=== PATIENT | female | born 1940 | race Caucasian/White ===

== ENCOUNTER 2018-02-24 12:50 | Day surgery (SDC) | payer MEDICARE ==
[~2018-02-24 12:50] MED LIST: DIPHENHYDRAMINE HCL 50 MG/ML VIAL ONE; EPINEPHRINE INJ 1 MG/10 ML DISP.SYRIN ONE; FENTANYL CITRATE INJ/PF 100 MCG/2 ML AMPUL ONE; FLUMAZENIL INJ 0.5 MG/5 ML VIAL ONE; GLUCAGON,HUMAN RECOMB 1 MG INJ ONE; MIDAZOLAM 2 MG/2 ML INJ ONE; NALOXONE HCL INJ/PF 0.4 MG/1 ML SDV ONE
[2018-02-24] MEDS: MIDAZOLAM 2 MG/2 ML INJ ONE ×2 (13:44→13:48)
--- NOTE | 2018-02-24 13:54 | Operative Report ---
Operative Report DATE OF SURGERY: 02/24/18 Operative Report: The risks benefits and alternatives of the procedure explained to the patient in detail and informed consent is obtained.A GIF Olympus video scope was inserted into the patient's mouth and hypopharynx, the esophagus is identified intubated and insufflated, the scope was then advanced through the esophagus stomach and duodenum, retroflexion maneuver is done, the esophagus stomach and first and second portions of the duodenum examined PREOPERATIVE DIAGNOSIS: Right upper quadrant/epigastric pain POSTOPERATIVE DIAGNOSIS: Gastritis status post biopsy rule out Helicobacter pylori OPERATION: EGD with biopsy SURGEON: MONI AREVALO ANESTHESIA: Moderate Sedation - 3 mg of Versed, 25 mcg of fentanyl. Conscious sedation monitoring time 30 minutes. TISSUE REMOVED OR ALTERED: As noted above. COMPLICATIONS: None. ESTIMATED BLOOD LOSS: None. INTRAOPERATIVE FINDINGS: As noted above. PROCEDURE: Patient tolerated procedure well. No immediate postprocedure complications are noted. Patient discharged in good condition. Discharge date 02/24/2018. Discharge diet: Regular. Discharge activity: Regular. 2-3 week follow-up to discuss findings. Patient is instructed call the office or proceed to the emergency room should there be any further problems or questions. We will wait on the pathology.
[2018-02-24 16:15] VITALS: BP 136/57
== END 2018-02-24 15:15 | disposition home or self-care (01) ==
LOC: END 12:50
PROVIDERS: ATTEND Internal Medicine Gastroenterology
DX: K29.50 Unspecified chronic gastritis without bleeding (principal); E78.5 Hyperlipidemia, unspecified; E03.9 Hypothyroidism, unspecified; I12.9 Hypertensive chronic kidney disease with stage 1 through stage 4 chronic kidney disease, or unspecified chronic kidney disease; E11.22 Type 2 diabetes mellitus with diabetic chronic kidney disease; N18.3 Chronic kidney disease, stage 3 (moderate)
CPT/HCPCS: 43239; 88342 ×2; 88305 ×2; J2250; J3010; J0171; J1200; J1610; J2310; J3490

== ENCOUNTER → 2018-03-20 | Outpatient (CLI) | payer MEDICARE ==
--- NOTE | 2018-03-20 11:29 | RADIOLOGY REPORT (SQ) ---
EXAM DESCRIPTION: U/S ABDOMEN COMPLETE W/DOPPLER COMPLETED DATE/TIME: 03/20/2018 8:49 am REASON FOR STUDY: RIGHT UPPER QUADRANT PAIN R10.11 RIGHT UPPER QUADRANT PAIN COMPARISON: None. TECHNIQUE: Dynamic and static grayscale images acquired of the abdomen and recorded on PACS. Additio nal selected color Doppler and spectral images recorded. LIMITATIONS: None. FINDINGS: PANCREAS: No masses. Visualized pancreatic duct normal caliber. LIVER: Echotexture is coarse with increased echogenicity consistent with fatty infiltration. LIVER VASCULATURE: Normal directional flow of the main portal vein and hepatic veins. GALLBLADDER: No stones. Normal wall thickness. No pericholecystic fluid. ULTRASOUND-DETECTED GALLO'S SIGN: Negative. INTRAHEPATIC DUCTS AND COMMON DUCT: CBD and intrahepatic ducts normal caliber. No filling defects. INFERIOR VENA CAVA: Normal flow. AORTA: No aneurysm. RIGHT KIDNEY: Normal size. Normal echogenicity. 1.0 cm cortical cyst in the lower pole. No solid o r suspicious masses. No hydronephrosis. No calcifications. LEFT KIDNEY: Normal size. Normal echogenicity. No solid or suspicious masses. No hydronephrosis. No calcifications. SPLEEN:Normal size. No solid masses. PERITONEAL AND PLEURAL SPACES: No ascites or effusions. OTHER: No other significant finding. IMPRESSION: FATTY LIVER. SMALL CORTICAL CYST IN THE LOWER POLE OF THE RIGHT KIDNEY. NO OTHER SIGNI FICANT FINDING. TECHNICAL DOCUMENTATION: JOB ID: [id number] [employer]- All Rights Reserved Reading location - IP/workstation name: [facility]
== END ==
LOC: RAD 08:09
PROVIDERS: ATTEND Internal Medicine Gastroenterology
DX: R10.11 Right upper quadrant pain (principal)
CPT/HCPCS: 76700; 93976

== ENCOUNTER → 2018-03-24 | Outpatient (CLI) | payer MEDICARE ==
--- NOTE | 2018-03-24 16:17 | RADIOLOGY REPORT (SQ) ---
EXAM DESCRIPTION: NM HIDA SCAN WITH CCK COMPLETED DATE/TIME: 03/24/2018 3:38 pm REASON FOR STUDY: RUQ PAIN (R10.11) R10.11 RIGHT UPPER QUADRANT PAIN COMPARISON: Abdominal ultrasound 03/20/2018 RADIONUCLIDE AND DOSE: DOSAGE RADIONUCLIDE: 5.4 millicuries Tc99m Mebrofenin. DOSAGE CCK: 1.7 micrograms. DOSAGE MORPHINE: Not required. The route of agent administration: Intravenous TECHNIQUE: Serial imaging right upper quadrant up to 60 minutes following injection of radionuclide. CCK injected after gallbladder visualized. LIMITATIONS: None. FINDINGS: LIVER: Prompt homogeneous uptake throughout the liver which clears by 60 minutes. INTRAHEPATIC BILE DUCTS: Normal visualization. COMMON BILE DUCT: Normal visualization. GALLBLADDER: Normal visualization. Calculated ejection fraction of 3%. Normal range is greater pravin n 35%. PHYSICAL RESPONSE: Patients presenting complaint was not reproduced. OTHER: No other significant finding. IMPRESSION: No scintigraphic evidence of cystic duct or common duct obstruction. Gallbladder ejection fraction 3%. IV CCK did not reproduce the patient's symptoms TECHNICAL DOCUMENTATION: JOB ID: [id number] [employer]- All Rights Reserved Reading location - IP/workstation name: [email or web address]
== END ==
LOC: RAD 12:44
PROVIDERS: ATTEND Internal Medicine Gastroenterology
DX: R10.11 Right upper quadrant pain (principal)
CPT/HCPCS: 78227; J2805; A9537

== ENCOUNTER → 2020-09-07 | Outpatient (CLI) | payer MEDICARE ==
--- NOTE | 2020-09-07 15:08 | RADIOLOGY REPORT (SQ) ---
EXAM DESCRIPTION: CHEST 2 VIEWS IMAGES COMPLETED DATE/TIME: 09/07/2020 2:37 pm REASON FOR STUDY: PRE OP COMPARISON: None. EXAM PARAMETERS: NUMBER OF VIEWS: two views TECHNIQUE: Digital Frontal and Lateral radiographic views of the chest acquired. RADIATION DOSE: NA LIMITATIONS: none FINDINGS: LUNGS AND PLEURA: No opacities, masses or pneumothorax. No pleural effusion. MEDIASTINUM AND HILAR STRUCTURES: No masses or contour abnormalities. HEART AND VASCULAR STRUCTURES: Heart normal size. No evidence for failure. BONES: No acute findings. HARDWARE: None in the chest. OTHER: No other significant finding. IMPRESSION: NO ACUTE RADIOGRAPHIC FINDING IN THE CHEST. TECHNICAL DOCUMENTATION: JOB ID: [id number] 2010 [employer]- All Rights Reserved Reading location - IP/workstation name: [email or web address]
[2020-09-07 16:14] LABS: ABSOLUTE BASOPHILS # (AUTO) 0.1 10^3/uL (0.0-0.2); ABSOLUTE EOSINOPHILS # (AUTO) 0.5 10^3/uL (0.0-0.6); ABSOLUTE LYMPHOCYTES (AUTO) 2.8 10^3/uL (0.5-4.7); ABSOLUTE MONOCYTES (AUTO) 0.9 10^3/uL (0.1-1.4); ABSOLUTE NEUT (AUTO) 4.4 10^3/uL (1.7-8.2); BASOPHILS % (AUTO) 1.6 % (0-2); EOSINOPHILS % (AUTO) 5.4 % (0-6); HEMATOCRIT 38.7 % (36.0-47.0); HEMOGLOBIN 13.1 g/dL (12.0-15.5); LYMPHOCYTES % (AUTO) 32.1 % (13-45); MEAN CORPUSCULAR HEMOGLOBIN 28.8 pg (27.0-33.4); MEAN CORPUSCULAR HGB CONC 33.7 g/dL (32.0-36.0); MEAN CORPUSCULAR VOLUME 85 fl (80-97); MONOCYTES % (AUTO) 10.2 % (3-13); PLATELET COUNT 281 10^3/uL (150-450); RED BLOOD COUNT 4.54 10^6/uL (3.72-5.28); RED CELL DISTRIBUTION WIDTH 13.2 % (11.5-14.0); SEGMENTED NEUTROPHILS % (AUTO) 50.7 % (42-78); TOTAL CELLS COUNTED % (AUTO) 100 %; WHITE BLOOD COUNT 8.7 10^3/uL (4.0-10.5)
[2020-09-07 16:16] LABS: APPEARANCE,URINE CLOUDY; BILIRUBIN,URINE NEGATIVE (NEGATIVE); COLOR,URINE YELLOW; GLUCOSE, URINE NEGATIVE (NEGATIVE); KETONES,URINE NEGATIVE (NEGATIVE); LEUKOCYTE ESTERASE,URINE LARGE (NEGATIVE); NITRITE,URINE POSITIVE (NEGATIVE); PROTEIN,URINE NEGATIVE (NEGATIVE); URINE SPECIFIC GRAVITY 1.023; UROBILINOGEN,URINE NEGATIVE mg/dL (<2.0)
[2020-09-07 16:27] LABS: ANION GAP 9 (5-19); BLOOD UREA NITROGEN 27 mg/dL (7-20); CALCIUM 9.7 mg/dL (8.4-10.2); CARBON DIOXIDE 25 mmol/L (22-30); CHLORIDE 102 mmol/L (98-107); GLUCOSE 99 mg/dL (75-110); POTASSIUM 4.4 mmol/L (3.6-5.0)
--- NOTE | 2020-09-07 17:51 | EKG REPORT ---
SEVERITY:- ABNORMAL ECG - SINUS BRADYCARDIA LEFT ANTERIOR FASCICULAR BLOCK LEFT VENTRICULAR HYPERTROPHY : Confirmed by: Chaparro Hyatt MD 07-Sep-2020 17:50:38
== END ==
LOC: OD 13:49
PROVIDERS: ATTEND Orthopaedic Surgery
DX: Z01.810 Encounter for preprocedural cardiovascular examination (principal); Z01.811 Encounter for preprocedural respiratory examination; Z01.812 Encounter for preprocedural laboratory examination; M25.811 Other specified joint disorders, right shoulder; M25.511 Pain in right shoulder; I12.9 Hypertensive chronic kidney disease with stage 1 through stage 4 chronic kidney disease, or unspecified chronic kidney disease; N18.9 Chronic kidney disease, unspecified; E11.22 Type 2 diabetes mellitus with diabetic chronic kidney disease
CPT/HCPCS: 36415; 71046; 80048; 81001; 83036; 85025; 93005; 93010

== ENCOUNTER → 2020-09-30 | Outpatient (CLI) | payer MEDICARE ==
[2020-09-30 09:13] LABS: APPEARANCE,URINE CLEAR; BILIRUBIN,URINE NEGATIVE (NEGATIVE); COLOR,URINE YELLOW; GLUCOSE, URINE NEGATIVE (NEGATIVE); KETONES,URINE NEGATIVE (NEGATIVE); LEUKOCYTE ESTERASE,URINE TRACE (NEGATIVE); NITRITE,URINE NEGATIVE (NEGATIVE); PROTEIN,URINE NEGATIVE (NEGATIVE); URINE SPECIFIC GRAVITY 1.011; UROBILINOGEN,URINE NEGATIVE mg/dL (<2.0)
== END ==
LOC: OD 08:06
PROVIDERS: ATTEND Orthopaedic Surgery
DX: Z01.812 Encounter for preprocedural laboratory examination (principal); M25.811 Other specified joint disorders, right shoulder; M25.511 Pain in right shoulder; I12.9 Hypertensive chronic kidney disease with stage 1 through stage 4 chronic kidney disease, or unspecified chronic kidney disease; N18.9 Chronic kidney disease, unspecified; E11.22 Type 2 diabetes mellitus with diabetic chronic kidney disease
CPT/HCPCS: 81001

== ENCOUNTER 2020-10-03 05:31 | Inpatient (IN) | payer MEDICARE ==
[~2020-10-03 05:31] MED LIST changes: +CEFAZOLIN 2 GM/D5W RTU 2 GM/50 ML RTUPB IV PRN; -DIPHENHYDRAMINE HCL 50 MG/ML VIAL ONE; -EPINEPHRINE INJ 1 MG/10 ML DISP.SYRIN ONE; -FENTANYL CITRATE INJ/PF 100 MCG/2 ML AMPUL ONE; -FLUMAZENIL INJ 0.5 MG/5 ML VIAL ONE; -GLUCAGON,HUMAN RECOMB 1 MG INJ ONE; -MIDAZOLAM 2 MG/2 ML INJ ONE; -NALOXONE HCL INJ/PF 0.4 MG/1 ML SDV ONE
[2020-10-03] MEDS ORDERED: OXYCODONE HCL SR 10 MG TABLET PO ONE (05:56)
[2020-10-03] MEDS ORDERED: CEFAZOLIN 2 GM/D5W RTU 2 GM/50 ML RTUPB IV ONE (05:56)
[2020-10-03] MEDS ORDERED: PANTOPRAZOLE SODIUM 20 MG TABLET.DR PO ONE (05:57)
[2020-10-03] MEDS ORDERED: LIDOCAINE 0.5% INJ-PF (5 MG/ML) 50 ML SDV ONE (06:17)
[2020-10-03] MEDS ORDERED: FENTANYL CITRATE INJ/PF 100 MCG/2 ML AMPUL ONE ×2 (06:18→12:16)
[2020-10-03] MEDS ORDERED: DEXAMETHASONE SOD PHOSPHATE INJ 4 MG/1 ML VIAL ONE (06:19)
[2020-10-03] MEDS ORDERED: ONDANSETRON HCL INJ/PF 4 MG/2 ML SDV ONE (06:19)
[2020-10-03] MEDS ORDERED: PROPOFOL INJ 200 MG/20 ML VIAL IV ONE (06:19)
[2020-10-03] MEDS ORDERED: EPHEDRINE SULFATE INJ 50 MG/1 ML AMPULE ONE (06:19)
[2020-10-03] MEDS ORDERED: MIDAZOLAM 2 MG/2 ML INJ ONE (06:19)
[2020-10-03] MEDS ORDERED: TRANEXAMIC ACID INJ/PF 1,000 MG/10 ML SDV ONE (06:20)
[2020-10-03] MEDS ORDERED: LIDOCAINE 2%/EPINEPHRINE INJ 20 ML VIAL ONE (07:06)
[2020-10-03] MEDS ORDERED: ROPIVACAINE HCL 0.5% INJ/PF (5 MG/1 ML) 30 ML SDV ONE (07:06)
[2020-10-03] MEDS ORDERED: BUPIVACAINE INJ/PF LIPOSOME/PF 266 MG/20 ML SDV ONE (07:23)
[2020-10-03] MEDS ORDERED: IBUPROFEN 800 MG in NORMAL SALINE 250 ML IV ONE (08:00)
[2020-10-03] MEDS ORDERED: VANCOMYCIN HCL INJ 1000 MG VIAL ONE (09:26)
[2020-10-03] MEDS ORDERED: PROMETHAZINE HCL INJ 25 MG/1 ML VIAL IV PRN ×2 (09:51)
[2020-10-03] MEDS ORDERED: DIPHENHYDRAMINE HCL 50 MG/ML VIAL IV PRN (09:51)
[2020-10-03] MEDS ORDERED: ONDANSETRON HCL INJ/PF 4 MG/2 ML SDV IV PRN (09:51)
[2020-10-03] MEDS ORDERED: FENTANYL CITRATE INJ/PF 100 MCG/2 ML AMPUL IV PRN ×2 (09:51)
[2020-10-03] MEDS ORDERED: MORPHINE SULFATE 10 MG/ML INJ IV PRN (09:51)
[2020-10-03] MEDS ORDERED: MEPERIDINE HCL/PF INJ 25 MG/1 ML DISP.SYRIN IV PRN (09:51)
--- NOTE | 2020-10-03 11:49 | Operative Report ---
Operative Report DATE OF SURGERY: 10/03/20 PREOPERATIVE DIAGNOSIS: Right shoulder rotator cuff arthropathy POSTOPERATIVE DIAGNOSIS: Same OPERATION: Right reverse total shoulder arthroplasty SURGEON: RYAN SALAMANCA [facility] DIRECTOR: FABIÁN NOLAN ANESTHESIA: GA COMPLICATIONS: None ESTIMATED BLOOD LOSS: 100 cc PROCEDURE: Indication for above procedure: 79-year-old female with longstanding history of right shoulder pain. Patient had MRI which demonstrated irreparable rotator cuff tear with superior humeral elevation consistent with rotator cuff arthropathy. Attempted conservative measures including injections without resolution of patient's symptoms. At that point discussed treatment options including operative versus nonoperative prevention of discussing risk benefits joint decision was made to proceed with operative treatment. Procedure In Detail: Patient was seen and evaluated in the preoperative holding area. The right upper extremity was initialized and marked. Patient received 2g of Ancef IV for bacterial prophylaxis. Patient was taken back to the operative room where transferred to the operative table and placed under general anesthesia. Once they were adequately anesthetized patient placed in the beachchair position. Cervical spine was placed in neutral position all bony prominences were padded including nonoperative upper extremity and bilateral lower extremity. A surgical team debriefing was performed ensuring all instrumentation was available, the surgical procedure was discussed with possible concerns reviewed. The upper extremity was prepped with ChloraPrep draped in a sterile fashion. A timeout was done identifying correct patient, procedure and extremity everyone in attendance agree with this and verbalized no concerns. Longitudinal skin incision was made over the deltopectoral interval. Blunt dissection was performed. Cephalic vein was identified and retracted laterally any small tributaries extending medially where tied off and coagulated with cautery. Deltopectoral interval was then utilized. The proximal 25% of the pectoralis major was released. Biceps tenotomy was performed. The rotator interval was identified and released. Axillary nerve was visualized and palpated along the medial aspect of the wound. The circumflex vessels were then isolated and tied off. Patient had full-thickness rotator cuff tear with complete retraction and in any identifiable supra space fibers were medial to the glenoid. The subscapularis was then released and tagged with FiberWire suture. A Fukuda retractor was placed on the posterior aspect of the glenoid and the interval between the capsule and muscular fibers of the subscapularis was identified and released. Remanent biceps tendon and labrum was excised. Posterior release was further performed. With extra rotation the humerus was exposed. The cutting guide was then placed with 30 degrees of retroversion and humeral head was excised. Any small osteophytes were debrided. The glenoid was then exposed any remnant capsule posteriorly was released. Utilizing the [employer] VIP system the guidepin was placed along the central portion which coincided with the preoperative template. The glenoid face was reamed down to cancellus bone and the glenosphere over reamer was then utilized. Guide hole was drilled and tapped. I attempted to implant a size 20 screw and a 24 baseplate however patient had poor bone quality thus decision was made to alter preoperative planning and a 24 mm +4 lateral glenoid baseplate with a 20 mm modular central post was implanted good fixation was obtained with the central post. The superior screw was then drilled and a 36 nonlocking screw implanted which provided further stability. A 28 mm locking screw was placed on the inferior portion obtaining bicortical fixation and a 16 locking screw posteriorly. Stability of the baseplate was then confirmed with a hemostat. Wound was copiously irrigated with pulse lavage and Betadine. A size 33/24 glenosphere was then secured into position. Attention then turned to the humerus. The opening reamer was then passed into the humerus I began broaching at a size 7 broach. Humeral stem was placed at 30 degrees of retroversion. Good fit was obtained with broaching up to a size 9. Drill holes were placed along the humerus and a #2 FiberWire was placed for later subscap repair. A size 9 Arthrex short humeral stem was implanted, with a 36/+2 suture cup. Unfortunately after trialing implants there was notable stability and a nondisplaced k along the medial calcar of the humerus and thus decision was made to alter implants. Prior implant was removed. Wound was copiously irrigated with normal saline. A fiber tape cerclage suture was placed around the humerus to provide further stability. I then began broaching with the longstem broaches broaching up to a size 9 obtaining good distal diaphyseal fit. Wound was irrigated with normal saline. The canal was further filled with cancellous bone to provide further ingrowth and stability. A universe reverse humeral stem size 9 was then implanted with a 36/+2 suture cup. Trialing a +3 modular instill I had good stability with extension and internal rotation external rotation to 70 degrees and full flexion/abduction. Wound was then copiously irrigated with normal saline. A universe reverse humeral insert 36+3/33 was inserted. Subscapularis was then repaired with Christian-Ajit sutures which provided good stability up to 50 degrees of external rotation. Given the lack of supraspinatus the rotator interval could not be closed. Wound was irrigated once again with saline. 1 g of vancomycin powder was applied. Deltopectoral interval was closed with interrupted 0 Vicryl suture. Subcutaneous tissues were closed with interrupted 2-0 Vicryl and 3-0 Monocryl suture. Skin was closed with running subcuticular 4-0 Monocryl reinforced with Dermabond and Steri- Strips. ViraPlex dressing was applied. Patient was placed in a postoperative sling. Sponge counts, instrument counts, needle counts were correct. Patient was then awoken from anesthesia. Transferred from the operating room table to the operating room stretcher. There was no intraoperative complications patient tolerated procedure well stable to PACU. Postop plan: Patient follow in the office in 2 weeks for recheck. We will begin physical therapy 6 weeks postoperatively. IMPLANTS: UNIVERSE Reverse Arthrex humeral stem size 9/suture cup 36, +2 Combo humeral insert 36+3/33 UNIVERSE Reverse modular glenoid baseplate 24 mm +4, central post 20 mm ARTHREX universe Reverse glenosphere 33
[2020-10-03] MEDS ORDERED: RINGERS SOLUTION,LACTATED 1,000 ML IV PRN (11:55)
[2020-10-03] MEDS ORDERED: ZOLPIDEM TARTRATE 5 MG TABLET PO PRN (11:55)
[2020-10-03] MEDS ORDERED: CEFAZOLIN 2 GM/D5W RTU 2 GM/50 ML RTUPB IV SCH (12:00)
[2020-10-03] MEDS: FENTANYL CITRATE INJ/PF 100 MCG/2 ML AMPUL IV PRN ×2 (12:16→12:25)
--- NOTE | 2020-10-03 12:58 | RADIOLOGY REPORT (SQ) ---
EXAM DESCRIPTION: SHOULDER RIGHT 2 OR MORE VIEWS IMAGES COMPLETED DATE/TIME: 10/03/2020 12:43 pm REASON FOR STUDY: Post op M25.811 OTHER SPECIFIED JOINT DISORDERS, RIGHT SHOULDER M25.511 PAIN IN RIGHT SHOULDER COMPARISON: None. NUMBER OF VIEWS: Three views. TECHNIQUE: Internal rotation, external rotation, and Y view images acquired of the right shoulder. LIMITATIONS: None. FINDINGS: MINERALIZATION: Normal. BONES: Status post total shoulder arthroplasty without evidence of hardware complication. No acute o sseous findings. JOINTS: No dislocation. Gas seen within the glenohumeral space is not an unexpected finding in the i mmediate postoperative setting. VISUALIZED LUNGS AND RIBS: No pneumothorax. No rib fracture. SOFT TISSUES: No radiopaque foreign body. OTHER: No other significant finding. IMPRESSION: Status post total shoulder arthroplasty without evidence of hardware complication. TECHNICAL DOCUMENTATION: JOB ID: [id number] 2010 [employer]- All Rights Reserved Reading location - IP/workstation name: [email or web address]
[2020-10-03] MEDS ORDERED: SUCCINYLCHOLINE CHLORIDE INJ 200 MG/10 ML VIAL ONE (14:21)
[2020-10-03] MEDS ORDERED: GLYCOPYRROLATE 1 MG/5 ML VIAL ONE (14:21)
[2020-10-03] MEDS: OXYCODONE-ACETAMINOPHEN 5-325 MG TABLET PO PRN (17:09)
[2020-10-03] MEDS: CEFAZOLIN SODIUM 2 GM in DEXTROSE 5%-WATER 100 ML IV SCH (20:07)
[2020-10-03] MEDS: MORPHINE SULFATE 10 MG/ML INJ IV PRN (20:52)
[2020-10-04] MEDS: MORPHINE SULFATE 10 MG/ML INJ IV PRN ×2 (02:12→06:12)
[2020-10-04] MEDS: CEFAZOLIN SODIUM 2 GM in DEXTROSE 5%-WATER 100 ML IV SCH ×2 (02:13→08:13)
[2020-10-04] MEDS: OXYCODONE-ACETAMINOPHEN 5-325 MG TABLET PO PRN (04:08)
[2020-10-04 07:22] LABS: HEMATOCRIT 31.7 % (36.0-47.0); HEMOGLOBIN 10.5 g/dL (12.0-15.5); MEAN CORPUSCULAR HEMOGLOBIN 28.2 pg (27.0-33.4); MEAN CORPUSCULAR HGB CONC 33.3 g/dL (32.0-36.0); MEAN CORPUSCULAR VOLUME 85 fl (80-97); PLATELET COUNT 325 10^3/uL (150-450); RED BLOOD COUNT 3.73 10^6/uL (3.72-5.28); RED CELL DISTRIBUTION WIDTH 14.3 % (11.5-14.0); WHITE BLOOD COUNT 17.6 10^3/uL (4.0-10.5)
--- NOTE | 2020-10-04 07:39 | PDOC PROGRESS REPORT ---
Subjective Date:: 10/04/20 Subjective:: Patient seen and examined. She reports considerable pain overnight. It is impr tc this morning but she is concerned about her level of pain control. Will discuss with nursing staff some options for optimization prior to discharge today. Reason For Visit: RIGHT TOTAL SHOULDER Physical Exam Vital Signs: Temp Pulse Resp BP Pulse Ox 97.4 F 69 18 146/51 H 100 10/03/20 22:00 10/03/20 23:57 10/03/20 19:10 10/03/20 23:57 10/03/20 19:10 Intake & Output 10/03/20 10/04/20 10/05/20 06:59 06:59 06:59 Intake Total 0 2359 Balance 0 2359 Weight 83.46 kg 83.6 kg Physical Exam: No acute distress, alert and x3 Right upper extremity Upper extremity sensation grossly intact to radial median and ulnar nerve. upper extremity motor function grossly intact to radian median ulnar nerve AIN and PIN Pulses 2+, capillary refill less than 2 seconds Wound clean dry and intact Compartments soft Mild swelling Results Laboratory Results: 10/04/20 05:48 10/03/20 06:10 10/04/20 05:48 WBC 17.6 H RBC 3.73 Hgb 10.5 L Hct 31.7 L MCV 85 MCH 28.2 MCHC 33.3 RDW 14.3 H Plt Count 325 Impressions: Shoulder X-Ray 10/03/20 11:57 IMPRESSION: Status post total shoulder arthroplasty without evidence of hardware complication. Assessment & Plan - Diagnosis (1) Status post reverse arthroplasty of right shoulder Is this a current diagnosis for this admission?: Yes Plan: Discharge home today Multimodal pain control Maintain dressing until seen by Dr. Lopez in the office Patient has follow-up instructions provided Continue sling until seen in the office Nonweightbearing right upper extremity until further notice. - Time Time Spent with patient: Less than 15 minutes
[2020-10-04] MEDS ORDERED: KETOROLAC TROMETHAMINE INJ/PF 30 MG/1 ML SDV IV ONE (07:40)
[2020-10-04] MEDS ORDERED: TRAMADOL HCL 50 MG TABLET PO PRN (07:41)
[2020-10-04] MEDS ORDERED: ASPIRIN 325 MG TABLET, ENT COATED PO SCH (10:00)
[2020-10-04 11:41] VITALS: BP 131/55
[2020-10-04] MEDS ORDERED: ACETAMINOPHEN 325 MG TABLET PO SCH (14:00)
== END 2020-10-04 11:59 | disposition home or self-care (01) | DRG 483 ==
LOC: INOR 05:31 → 4W 14:49
PROVIDERS: ADMIT Orthopaedic Surgery; ATTEND Orthopaedic Surgery
PROC: 0RRJ00Z Replacement of Right Shoulder Joint with Reverse Ball and Socket Synthetic Substitute, Open Approach (ICD-10-PCS; principal; 2020-10-03 07:30)
DX: M75.101 Unspecified rotator cuff tear or rupture of right shoulder, not specified as traumatic (principal); M12.811 Other specific arthropathies, not elsewhere classified, right shoulder; I12.9 Hypertensive chronic kidney disease with stage 1 through stage 4 chronic kidney disease, or unspecified chronic kidney disease; E11.22 Type 2 diabetes mellitus with diabetic chronic kidney disease; N18.9 Chronic kidney disease, unspecified; Z20.828 Contact with and (suspected) exposure to other viral communicable diseases; Z86.73 Personal history of transient ischemic attack (TIA), and cerebral infarction without residual deficits; Z82.49 Family history of ischemic heart disease and other diseases of the circulatory system; Z90.49 Acquired absence of other specified parts of digestive tract
CPT/HCPCS: 01638; 36415; 81001; 82962; 84132; 85027; 86850; 86900; 86901; 87635; C1713; C1776; C9290; C9803; J0330; J0690; J1100; J1741; J1885; J2250; J2270; J2405; J2704; J2795; J3010; J3370; J3490; J7050; J7060; J7120